=== PATIENT | female | born 2005 | race Caucasian/White ===

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

== ENCOUNTER 2024-11-18 15:26 | Emergency (ER) | payer OTHER, SELFPAY ==
[2024-11-18] VITALS (7 sets, daily range): BP systolic 100–122; BP diastolic 56–81; PULSE 112–148; RESP 18–30; TEMP 37.2–37.8; O2SAT 96–100; BMI 18.9
--- NOTE | ~2024-11-18 | CT_ITS ---
CLINICAL HISTORY: tachycardia CT angiography chest with contrast. With MIP MPR Postprocessing. Comparison: None available Findings: No central pulmonary embolism. Small mediastinal and hilar nodes may be reactive. No aortic dissection. Mild residual thymic tissue present. Mild bibasilar atelectasis and motion artifacts. Mild emphysematous changes and scarring. No consolidation, pneumothorax, or pleural effusion. Steatotic change of the imaged liver in the imaged abdomen. No acute osseous abnormality accounting for motion artifacts. IMPRESSION: 1. No central pulmonary embolism. 2. No consolidation. This document has been electronically signed by: Maurilio Vasques MD on 11/18/2024 19:18:14
--- NOTE | 2024-11-18 15:30 | ED_ITS ---
HPI - General Adult General Chief complaint: Nausea/Vomiting/Diarrhea Stated complaint: fainting / heart rate 190 / vomitting Time Seen by Provider: 11/18/24 17:30 Source: patient Mode of arrival: ambulatory Limitations: no limitations History of Present Illness HPI narrative: 19 year old female presents to the ER with palpitations, nausea and vomiting. she states that her heart rate has been elevated she has had a complete workup for it sitting that she has done testing for multiple syncopal episodes as well as a table test. She states that was recently. Per mom she has always had a heart rate of 130's on her apple watch which she has for years. She continued to have issues with the heart rate and was sent to do the tilt table test by her PCP and was supposed to per mom get a implanted monitor. She arrives tachycardic between 130-150 but was 106 initially. She states she is mainly here for nausea and vomiting. Related Data Previous Rx's ?Medication ?Instructions ?Recorded ondansetron 4 mg disintegrating 4 mg PO Q6-8H PRN nausea and 03/23/23 tablet vomiting #10 tabs oxycodone-acetaminophen 5 mg-325 1 tab PO Q6H PRN pain #20 tabs 03/23/23 mg tablet (Percocet) tamsulosin 0.4 mg capsule (Flomax) 0.4 mg PO BEDTIME #10 caps 03/23/23 prednisone 20 mg tablet 20 mg PO BID #10 tabs 03/26/23 cefuroxime axetil 250 mg tablet 250 mg PO BID 7 days #14 tabs 09/29/23 levofloxacin 500 mg tablet 500 mg PO DAILY #9 tabs 09/29/23 ondansetron HCl 4 mg tablet 4 mg PO Q6H PRN nausea and 09/29/23 vomiting #10 tabs oxycodone 5 mg tablet 5 mg PO BID PRN pain #4 tabs 09/29/23 ondansetron 4 mg disintegrating 4 mg PO Q6H #14 tabs 11/18/24 tablet propranolol 20 mg tablet 20 mg PO BID #90 tabs 11/18/24 Allergies Allergy/AdvReac Type Severity Reaction Status Date / Time Seasonal Allergies Allergy Itchy Eyes Verified 11/18/24 15:35 ketorolac AdvReac Histamine Verified 11/18/24 15:35 reaction morphine AdvReac Histamine Verified 11/18/24 15:35 Reaction Review of Systems 2 Review of Systems: Review of systems: General: Patient denies any fever chills recent illness or falls Musculoskeletal: Denies back pain or body aches or other injuries HEENT: denies headache, runny nose, ear pain Respiratory: denies shortness of breath, cough Cardiovascular: palpitations no chest pain : denies dysuria, frequency Abdomen: diarrhea nausea vomiting denies abdominal pain Extremities: no swelling, no pain Skin: no diaphoresis Yes all other systems are reviewed and are negative PMFSH Past Medical History Medical History (Updated 11/18/24 @ 20:09 by Addi Ariza DO) Calculus of kidney Social History Social History Alcohol intake: never Advance Directives: No Advance Directives Information Provided: No Physical Exam ED Vital Signs: Vital Signs - 24 hr 11/18/24 15:30 11/18/24 18:07 11/18/24 18:09 Temperature 98.9 F 99.6 F Pulse Rate 148 H 112 H 122 H Respiratory Rate 18 30 H 30 H Blood Pressure 100/69 111/57 L 122/81 Pulse Oximetry 98 98 96 Oxygen Delivery Method Room Air Room Air Room Air 11/18/24 19:23 11/18/24 19:23 11/18/24 19:23 Temperature Pulse Rate 119 H 116 H 124 H Respiratory Rate Blood Pressure 111/57 L 109/66 114/69 Pulse Oximetry Oxygen Delivery Method 11/18/24 19:24 Temperature 100.1 F Pulse Rate 116 H Respiratory Rate 22 H Blood Pressure 109/66 Pulse Oximetry 100 Oxygen Delivery Method Room Air BMI result Body Mass Index 18.9 Neurological exam: CN II- XII tested. Patient is alert and oriented to person place and time. Patient has no dysphagia or dysarthia, denies good vision in all four vision cristina no nystagmus on exam, good strength to upper and lower extremities with normal reflexes to brachioradialis, wrist, patella and achilles. Negative romberg, good finger to nose and heel to hernandez. General: Well-appearing well-nourished in no signs of distress HEENT: Normocephalic atraumatic Neck: No signs of JVD, no masses no tenderness or lymphadenopathy Cardiovascular: Regular rate and rhythm Respiratory: Clear to auscultation bilaterally Abdomen: Soft nontender no masses Extremities: Normal pedal pulses no signs of edema Skin: Dry warm no rashes Back: No tenderness full ROM Course Course Course Narrative: RME performed by Enid Lane PA-C. Patient is a 19 year old assigned female at presenting to the emergency department with nausea, vomiting, near syncope, and rapid heart rate. Detailed physical exam and review of systems are deferred to the records management assistant. EKG, labs, imaging and swabs ordered. Patient placed back in the waiting room pending room availability and results. Reevaluation(s) Reevaluation #1: CT and labs including TSH are all normal patient is persistently tachycardic patient is very shaky but has no signs of infection with the negative CT scan and labs. I will consult Cardiology at this time Time: 19:45 Reevaluation #2: I spoke to cardiology who wanted propranolol 20 mg started. I will give a dose here to see if that helps with HR. since the patient has this senior care I do not think she has we will discharge her home. As the patient already has an outpatient kettle loader and hopeful set up for the loop monitor which the mother wants our kettle loader did not feel a strong that it need to be advocated for early he does not see reason for the patient to be admitted I do agree since this has been going for so long the patient is safe to go home heart rate at the time of discharge was 110 she looks well her shakiness has improved her nausea has nearly completely resolved she has had no vomiting here I will send home with Zofran and propranolol Time: 20:06 Medications Administered Discontinued Medications Generic Name Dose Route Start Last Admin Trade Name Divya PRN Reason Stop Dose Admin Sodium Chloride 1,000 mls @ 999 mls/hr 11/18/24 17:45 11/18/24 18:49 Ns IV 11/18/24 18:45 Infused .Q1H1M LEV Infusion Sodium Chloride 1,000 mls @ 999 mls/hr 11/18/24 18:00 11/18/24 19:54 Ns IV 11/18/24 19:00 Infused .Q1H1M LEV Infusion Acetaminophen 1,000 mg in 100 mls @ 400 mls/hr 11/18/24 18:15 11/18/24 19:19 Ofirmev IV 11/18/24 18:29 Infused ONCE ONE Infusion Ibuprofen 400 mg 11/18/24 19:20 11/18/24 20:01 Ibuprofen 400 Mg Tablet PO 11/18/24 19:21 400 mg ONCE ONE Administration Iohexol 65 ml 11/18/24 18:41 11/18/24 18:41 Iohexol 350 Mg/Ml 100 Ml Infus..Btl IV 11/18/24 18:42 65 ml ONCE ONE Administration Metoprolol Tartrate 5 mg 11/18/24 17:52 11/18/24 18:01 Metoprolol Tartrate 5 Mg/5 Ml Vial IVPUSH 11/18/24 17:53 Not Given ONCE ONE Protocol Ondansetron HCl 4 mg 11/18/24 17:45 11/18/24 18:03 Ondansetron Hcl 4 Mg/2 Ml Vial IVPUSH 11/18/24 17:46 4 mg ONCE ONE Administration Medical Decision Making Medical Decision Making MDM Narrative: the story is very odd that she has not been treated for heart rate in the 130s for years and that the patient was sent to hospital but was sent for outpatient monitoring that has not happened I do feel that she is most likely here just for the nausea and vomiting today and I will treat the patient Zofran fluids I will give the patient for a CTA chest the with a heartbeat so fast I do not feel comfortable discharging home I will touch base with Cardiology in addition to the workup that was done triage add on a TSH level I will give the patient fluids and metoprolol. Differential Diagnosis Differential Diagnoses: The differential diagnosis associated with the presentation includes Dehydration electrolyte abnormality palpitations medication effect weakness tachycardia PE Lab Data 11/18/24 15:48 11/18/24 15:48 Labs: Lab Results 11/18/24 Range/Units 15:48 WBC 12.4 H (4.8-10.8) X10*3/uL RBC 5.20 (4.20-5.50) X10*6/uL Hgb 15.7 (12.0-16.0) g/dl Hct 43.8 (37.0-47.0) % MCV 84.2 (80.0-98.0) fL MCH 30.2 (27.0-33.0) pg MCHC 35.8 H (31.0-35.0) g/dl RDW 12.1 (11.0-16.0) % Plt Count 199 (160-400) X10*3/uL MPV 8.8 L (9.4-12.3) fL Immature Gran % (Auto) 0.4 (0.0-0.4) % Neut % (Auto) 93.3 H (45-73) % Lymph % (Auto) 2.0 L (20-40) % Costilla % (Auto) 4.0 (2-11) % Eos % (Auto) 0.2 (0-4) % Baso % (Auto) 0.1 (0-2) % Lymph # (Auto) 0.3 L (1.2-4.9) X10*3/uL [place] # (Auto) 0.5 (0.1-1.2) X10*3/uL Eos # (Auto) 0.0 (0.0-0.4) X10*3/uL Baso # (Auto) 0.0 (0.0-0.2) X10*3/uL Abs Immat Gran (auto) 0.05 H (0.00-0.03) X10*3/uL Absolute Neuts (auto) 11.6 H (2.0-8.3) x10*3/uL Absolute Nucleated RBC 0.000 (0.0-0.012) X10*3/uL Nucleated RBC % (auto) 0.0 (0.0-0.2) /100WBC Sodium 140 (135-145) mmol/L Potassium 4.0 (3.3-5.1) mmol/L Chloride 106 (96-108) mmol/L Carbon Dioxide 20 L (22-29) mmol/L Anion Gap 18 (12-20) BUN 18 H (9-16) mg/dL Creatinine 0.96 (0.5-1.4) mg/dL Estim Creat Clear Calc 75.8 Estimated GFR > 60 Random Glucose 117 H (60-115) mg/dL Calcium 9.6 (8.4-10.2) mg/dL Magnesium 1.9 (1.6-2.6) mg/dL Total Bilirubin 1.1 H (0.0-1.0) mg/dL AST 24 (5-31) U/L ALT 27 (0-31) U/L Alkaline Phosphatase 62 (39-117) U/L Troponin I High Sens < 2.7 (<3.5-17.0) ng/L Total Protein 8.4 H (6.5-8.0) g/dL Albumin 4.9 (3.5-5.0) g/dL TSH 0.55 (0.32-4.0) uIU/mL Beta HCG, Quant < 2 mIU/mL Influenza Type A (PCR) NEGATIVE (Negative) Influenza Type B (PCR) NEGATIVE (Negative) RSV RNA Qual (PCR) NEGATIVE (Negative) SARS-CoV-2 RNA (RT-PCR) NEGATIVE (Negative) Discharge Plan Discharge Clinical Impression: Tachycardia, Vomiting, Acute dehydration Patient Disposition: Home, Self-Care Additional Instructions: You were seen today in the emergency department for nausea vomiting and persistent elevated heart rate which is called tachycardia. You had CT and labs done which were all unremarkable including thyroid levels we did speak with cardiology who recommend you start on a medication for the heart rate. Please call follow up with your doctor if you have any other concerns please return to the ER. Prescriptions: New propranolol 20 mg tablet 20 mg PO BID Qty: 90 0RF ondansetron 4 mg tablet,disintegrating 4 mg PO Q6H Qty: 14 0RF No Action oxycodone-acetaminophen [Percocet] 5-325 mg tablet 1 tab PO Q6H PRN (Reason: pain) Qty: 20 0RF Rx Instructions: Partial Fill upon patient request. tamsulosin [Flomax] 0.4 mg capsule 0.4 mg PO BEDTIME Qty: 10 0RF ondansetron 4 mg tablet,disintegrating 4 mg PO Q6-8H PRN (Reason: nausea and vomiting) Qty: 10 0RF prednisone 20 mg tablet 20 mg PO BID Qty: 10 0RF levofloxacin 500 mg tablet 500 mg PO DAILY Qty: 9 0RF oxycodone 5 mg tablet 5 mg PO BID PRN (Reason: pain) Qty: 4 0RF Rx Instructions: Partial Fill upon patient request. ondansetron HCl 4 mg tablet 4 mg PO Q6H PRN (Reason: nausea and vomiting) Qty: 10 0RF cefuroxime axetil 250 mg tablet 250 mg PO BID 7 Days Qty: 14 0RF Print Language: Danish
--- NOTE | 2024-11-18 15:31 | ECG_ITS ---
Test Reason : cp Blood Pressure : */* mmHG Vent. Rate : 138 BPM Atrial Rate : 138 BPM P-R Int : 116 ms QRS Dur : 70 ms QT Int : 284 ms P-R-T Axes : 71 76 31 degrees QTcB Int : 430 ms Sinus tachycardia Otherwise normal ECG When compared with ECG of 27-Mar-2023 12:45, No significant change was found Referred By: Enid Lane Electronically Signed By: MY REBOLLAR MD
[2024-11-18 16:01] LABS: MANUAL DIFF FLAG NO
[2024-11-18 16:06] LABS: Basophils Percent Auto 0.1 % (0-2); Eosinophils Percent Auto 0.2 % (0-4); Hematocrit 43.8 % (37.0-47.0); Hemoglobin 15.7 g/dl (12.0-16.0); Imm Gran Abs Auto 0.05 X10*3/uL (0.00-0.03); Imm Gran Pct Auto 0.4 % (0.0-0.4); Lymphocytes Absolute Auto 0.3 X10*3/uL (1.2-4.9); Mean Corpuscular HGB Conc 35.8 g/dl (31.0-35.0); Mean Corpuscular Hemoglobin 30.2 pg (27.0-33.0); Mean Corpuscular Volume 84.2 fL (80.0-98.0); Mean Platelet Volume 8.8 fL (9.4-12.3); Monocytes Absolute Auto 0.5 X10*3/uL (0.1-1.2); Neutrophils Absolute Auto 11.6 x10*3/uL (2.0-8.3); Neutrophils Percent Auto 93.3 % (45-73); Platelet Count 199 X10*3/uL (160-400); Red Cell Distribution Width 12.1 % (11.0-16.0); SCAN SMEAR FLAG 1; White Blood Count 12.4 X10*3/uL (4.8-10.8)
[2024-11-18 16:27] LABS: Alanine Aminotransferase 27 U/L (0-31); Albumin Level 4.9 g/dL (3.5-5.0); Alkaline Phosphatase 62 U/L (39-117); Anion Gap 18 (12-20); Aspartate Amino Transferase 24 U/L (5-31); Bilirubin Total 1.1 mg/dL (0.0-1.0); Blood Urea Nitrogen 18 mg/dL (9-16); Calcium 9.6 mg/dL (8.4-10.2); Carbon Dioxide 20 mmol/L (22-29); Chloride 106 mmol/L (96-108); Creatinine Clr Calc Pharmacy 75.8; Estimated Glomerular Filt Rate > 60; Glucose Random 117 mg/dL (60-115); Magnesium 1.9 mg/dL (1.6-2.6); Sodium 140 mmol/L (135-145); Total Protein 8.4 g/dL (6.5-8.0)
[2024-11-18 16:28] LABS: Troponin-I High Sensitivity < 2.7 ng/L (<3.5-17.0)
[2024-11-18 16:29] LABS: HCG Quantitative < 2 mIU/mL
[2024-11-18 16:42] LABS: Influenza A PCR NEGATIVE (Negative); Influenza B PCR NEGATIVE (Negative); Resp Syncy Virus RNA Qual PCR NEGATIVE (Negative); SARS COV2 PCR INHOUSE NEGATIVE (Negative)
[2024-11-18] MEDS: 0.9 % Sodium Chloride 1,000 ML 999 ML IV ×2 (17:54→18:53)
[2024-11-18] MEDS: ondansetron HCL 4 MG/2 ML VIAL IVPUSH (18:03)
[2024-11-18 18:27] LABS: TSH reflex Free T4 0.55 uIU/mL (0.32-4.0)
[2024-11-18] MEDS: iohexoL 350 MG/ML 100 ML INFUS..BTL 65 ML IV (18:41)
[2024-11-18] MEDS: Acetaminophen 1,000 MG/100 ML PIGGYBACK 400 MG IV (18:55)
--- OUTSIDE RECORDS SUMMARY | 2024-11-18 19:11 | XMS_ITS | Encounter Summary ---
Author Organization [facility] Address [address] [place] [address] Phone Care Team Providers Care Server Support Technician Name Role Phone Poornima Goodman MD Primary Care Provider [phone] Reason for Visit * Reason Onset Date Comments Med Refill 12/09/2022 Encounter Details Date Type Department Care Team (Late st Contact Info) Description 12/09/2022 Refill [facility] [place] [address] [place] [address] Poornima Goodman MD [address] [facility] [address] [place] [address] Anxiety Social History Tobacco Use Types Packs/Day Years Used Date Smoking Tobacco: Never Smokeless Tobacco: Never Alcohol Use Standard Drinks/Week Comments No 0 (1 standard drink = 0.6 oz pur e alcohol) Hunger/Food Answer Date Recorded In the last 12 months, did y ou or your family ever eat less than you felt you should because there wasn't enough money for food? No 05/18/2022 Stable Housing Answer Date Recorded Are you worried that in the next 2 months you may not have stable housing? No 05/18/2022 Transportation Concerns Answer Date Rec orded In the last 12 months, have you or your family ever had to go without healthcare because you didn't have a way to get there? No 05/18/2022 Hazards in Home Answer Date Recorded Think about the place you li ve. Do you have problems with any of the following? Pests (mice or roaches), mold, no/not working smoke detectors, water leaks, no window guards. No 2021 Financing Utilities Answer Date Recorde d In the last 12 months, has t he electric, gas, oil, or water company threatened to shut off your services in your home? No 05/18/2022 Safety at Home Answer Date Recorded Are you or your family worried about feeling saf e in your home? No 05/18/2022 Outside Support Answer Date Recorded Do you feel that you need mo re support from other people or programs to help you care for yourself or your family? No 05/18/2022 Understanding Health Concerns Answer Da te Recorded Do you need help understandi ng your or your child's healthcare needs (diagnosis, medications, plan, etc.)? No 05/18/2022 Financing Health Concerns Answer Date R ecorded In the last 12 months, was t here a time when your child needed to see a doctor or get medications or supplies but could not because of cost? No 05/18/2022 Missing School or Work Answer Date Salbador rded Did you or your child miss s chool or work because of a health problem that could have been avoided? No 05/18/2022 Comments Unknown Sex and Gender Information Value Date Recorded Sex Assigned at Not on file Legal Sex Female 5:39 PM EST Gender Identity Female 07/21/2020 1:49 PM EST Sexual Orientation Not on file documented as of this encounter Plan of Treatment Upcoming Encounters Date Type Department Care Team (Late st Contact Info) Description 01/22/2025 8:20 AM EDT Office Visit [facility] [address] [place] [address] Poornima Goodman MD [address] [address] documented as of this encounter Visit Diagnoses Diagnosis Anxiety Anxiety state, unspecified documented in this encounter Care Teams Server Support Technician Relationship Specialty Start Date End Date Poornima Goodman MD [address] [place] [id number] PCP - General Pediatrics 11/18/22 documented as of this encounter
--- OUTSIDE RECORDS SUMMARY | 2024-11-18 19:11 | XMS_ITS | Encounter Summary ---
Author Organization [facility] Address [address] [place] [address] Phone Care Team Providers Care Sheet Hanger Name Role Phone Poornima Goodman MD Primary Care Provider [phone] Reason for Visit * Reason Comments Med Management Encounter Details Date Type Department Care Team (Late st Contact Info) Description 10/24/2024 8:40 AM EST Office Visit [facility] [place] [address] [place] [address] Poornima Goodman MD 193 [facility] [address] [place] [address] Anxiety (Primary Dx); Cardiac syncope Social History Tobacco Use Types Packs/Day Years [...] could have been avoided? No 05/18/2022 Comments No Sex and Gender Information Value Date Recorded Sex Assigned at Not on file Legal Sex Female 5:39 PM EST Gender Identity Female 07/21/2020 1:49 PM EST Sexual Orientation Not on file documented as of this encounter Last Filed Vital Signs Vital Sign Reading Time Taken Comments Blood Pressure 116/73 10/24/2024 8:44 AM EST Pulse 108 10/24/2024 8:44 AM EST Temperature - - Respiratory Rate - - Oxygen Saturation - - Inhaled Oxygen Concentration - - Weight 51.9 kg (114 lb 6.4 oz) 10/24/2024 8:44 A M EST Height 168.3 cm (5' 6.25 ) 10/24/2024 8:44 AM ES T Body Mass Index 18.33 10/24/2024 8:44 AM EST documented in this encounter Patient Instructions * Patient Instructions* Khris Valera - 10/24/2024 8:40 AM EST Mood Continue sertraline [Zoloft], amitriptyline at current dose(s) Portal or phone follow-up: as needed Medication recheck visit in 3 months Call sooner with any concerning symptoms, change in behavior or academic performance, or any other questions. Schedule well visit at earliest convenience. documented in this encounter Progress Notes * Poornima Goodman MD - 10/24/2024 8:40 AM EST Chief Complaint Med Management Accompanied by No one. History of Present Illness Mood: Current medication(s): Amitriptyline 25 mg, Sertraline 100 mg Symptoms well controlled: Yes Refill needed: no Time on current medication: >1 year for both Current symptoms: nervousness, anxiousness, worrying, trouble relaxing, sleep dysfunction, fatigue Denies: suicidal thoughts Side effects: none Context: Higher RICO 7 and PHQ 9 than usual today. Having some increased anxiety as this has been a hard week with health issues. New medication midodrine was prescribed earlier this week. She passed out and her heart stopped. Diagnosed with cardioinhibitory syncope a [facility]. Follows with [facility]. She has not started taking the new medication yet, needs to pick it up from the pharmacy. Needs to get compression socks, loop recorder implant, increase electrolytes and salt. Potentially will get a pacemaker if these don't help. Does not have a therapist and does not desire one. Doesn't feel she needs a dose increase. Didn't take medication for three days in a row and it was horrible. Screenings General Anxiety Disorder-7 (GAD7) RICO 7 Score: 10 Patient Health Questionnaire-9 (PHQ-9) PHQ-9 Total Score: 6 (See screening activity for details) Reviewed this visit: Medications Vitals BP 116/73 (BP Location: Left arm) Pulse (!) 108 Ht 5' 6.25 (168.3 cm) Wt 114 lb 6.4 oz (51.9kg) BMI 18.33 kg/m?? Physical Exam GEN: Well appearing, in no acute distress. HEAD: Normocephalic, atraumatic. EYES: Conjunctiva clear, no discharge, eyelids wnl. COR: Mild tachycardia, HR ~110 Regular rhythm, nml S1 and S2, no murmurs. PULM: Clear to auscultation bilaterally. Normal respiratory effort. SKIN: No rash. Assessment and Plan Paula was seen today for med management. Anxiety (Primary) Assessment & Plan: GAD7 = 10, PHQ9 = 6. Higher than usual given recent news about her health (needing loop recorder and possible pacemaker for her heart). Not in therapy and does not feel she needs one. Has continued to take sertraline and amitriptyline with good effect. Does not want to make any changes to this medication. Continue with medication check in 3 months with [facility]. Cardiac syncope Assessment & Plan: Follows with [facility] Cardiology. Last seen 10/22/2024. Had positive tilt-table test. Diagnosed with cardiac-inhibitory syncope. Prescribed midodrine 5mg TID. Has not yet started this. Also recommend compression stockings, loop recorder implant and electrolytes. If little improvement, will need pacemaker.Will see Cardiology next week for further details. Mood Continue sertraline [Zoloft], amitriptyline at current dose(s) Portal or phone follow-up: as needed Medication recheck visit in 3 months Call sooner with any concerning symptoms, change in behavior or academic performance, or any other questions. Schedule well visit at earliest convenience. Follow-up and Dispositions Return for Well Visit. Visit scribed by Khris Valera, 9:02 AM 10/24/2024. All medical record entries made by the Scribe were at the personal direction of Poornima Goodman MD, who has reviewed the chart and agrees that the record accurately reflects their personal performance of the history, physical exam, assessment and plan. documented in this encounter Miscellaneous Notes * Assessment & Plan Note - Poornima Goodman MD - 10/24/2024 11:56 AM ESTAssociated Problem(s): Anxiety GAD7 = 10, PHQ9 = 6. Higher than usual given recent news about her health (needing loop recorder and possible pacemaker for her heart). Not in therapy and does not feel she needs one. Has continued to take sertraline and amitriptyline with good effect. Does not want to make any changes to this medication. Continue with medication check in 3 months with [facility]. * Assessment & Plan Note - Poornima Goodman MD - 10/24/2024 9:06 AM ESTAssociated Problem(s): Cardiac syncope Follows with [facility] Cardiology. Last seen 10/22/2024. Had positive tilt-table test. Diagnosed with cardiac-inhibitory syncope. Prescribed midodrine 5mg TID. Has not yet started this. Also recommend compression stockings, loop recorder implant and electrolytes. If little improvement, will need pacemaker.Will see Cardiology next week for further details. documented in this encounter Plan of Treatment Upcoming Encounters Date Type Department Care Team (Late st Contact Info) Description 01/22/2025 8:20 AM EDT Office Visit [facility] - [address] [address] Poornima Goodman MD [address] [place] [phone] documented as of this encounter Visit Diagnoses Diagnosis Anxiety- Primary Anxiety state, unspecified Cardiac syncope Syncope and collapse documented in this encounter Care Teams Sheet Hanger Relationship Specialty Start Date End Date Poornima Goodman MD [address] [place] [id number] PCP - General Pediatrics 11/18/22 documented as of this encounter
--- OUTSIDE RECORDS SUMMARY | 2024-11-18 19:12 | XMS_ITS | Encounter Summary ---
Author Organization [facility] Address [address] [place] [address] Phone Care Team Providers Care Pool Technician Name Role Phone Poornima Goodman MD Primary Care Provider [phone] Reason for Visit * Reason Comments ED Admission Encounter Details Date Type Department Care Team (Late st Contact Info) Description 11/18/2024 3:26 PM EST - Present Hospital Encounter [facility] - Patient Ping Social History Tobacco Use Types Packs/Day Years [...] Description 01/22/2025 8:20 AM EDT Office Visit [facility] [address] [place] [address] Poornima Goodman MD [address] [place] [phone] documented as of this encounter Visit Diagnoses Not on filedocumented in this encounter Care Teams Pool Technician Relationship Specialty Start Date End Date Poornima Goodman MD [address] [place] [id number] PCP - General Pediatrics 11/18/22 documented as of this encounter
--- OUTSIDE RECORDS SUMMARY | 2024-11-18 19:12 | XMS_ITS | Clinical Summary ---
Author Organization [facility] Address [address] [place] [address] Phone Care Team Providers Care Client Solutions Director Name Role Phone Poornima Goodman MD Primary Care Provider [phone] Allergies Active Allergy Reactions Criticality Noted Date Comments Environmental seasonal Medications medroxyPROGESTERo ne 150 MG/ML injection INJECT 1 ML INTRAMUSCULAR EVERY 3 MONTHS 2 04/21/20 20 Active Cholecalciferol (D3-1000) 25 MCG (1000 UT) capsuleIndication s:Encounter for routine child health examination with abnormal findings TAKE 1 CAPSULE BY MOUTH EVERY DAY 30 capsule 2 02/08/20 23 Active ondansetron ODT 4 MG disintegrating tablet Take 4 mg by mouth every 8 (eight) hours as needed. 03/23/20 23 Active oxyCODONE-acetami nophen 5-325 MG per tablet Take 1 tablet by mouth every 4 (four) hours as needed. 03/23/20 23 Active amitriptyline 25 MG tabletIndications :Anxiety Take 1 tablet (25 mg total) by mouth nightly. 90 tablet 09/20/19 25 Active sertraline 100 MG tabletIndications :Anxiety TAKE 1 TABLET BY MOUTH EVERY DAY 90 tablet 10/15/19 25 Active midodrine 5 MG tablet Take 5 mg by mouth 3 times daily. 10/22/19 25 Active cefuroxime 250 MG tablet 09/29/19 24 025 Discontin ued(Thera py completed ) Active Problems Problem Noted Date Diagnosed Date Stress due to illness of family member Overview (09/30/2023): 09/30/23: Mom (Alex) to have cardiac surgery: mitral valve replacement and tricuspid valve repair. Mom reports Paula has increased stress, anger at mom. Referred to [facility]. Acute pyelonephritis 09/30/2023 Assessment & Plan (10/17/2023 5:05 PM EST): UC from 09/29 [facility] was <10k and f/u next day at [facility] no growth. Pain and hematuria likely related to her kidney stones. Assessment & Plan (09/30/2023 11:31 AM EST): Seen in [facility] ED. Urine dipstick neg for leuks/nitrites. Still hematuria, symptoms improving Tachycardia 03/30/2023 Assessment & Plan (03/30/2023 1:37 PM EDT): Seen at [facility] ED on 03/27/2023 for arrythmia and tachcardia. Normal EKG (sinus tach) and blood work (cbc, cmp, tsh and negative ddimer, toponin, hcg). No recurrence of symptoms. Noted to have tachycardia today with HR 112 with normal exam today. Will refer to Cardiology for possible Holter monitoring. Right nephrolithiasis 01/14/2022 Overview (01/14/2022): Seen in ED 12/2021, 2mm stone with right sided hydroneprhosis mild, will f/u with urology Assessment & Plan (09/30/2023 11:32 AM EST): Seen at [facility] - pyelo and CT showed kidney stones but unclear if they are symptomatic or just the UTI. Improving on abx.Consider urology or renal referral. Assessment & Plan (05/18/2022 11:28 AM EDT): None further Cardiac syncope 12/04/2020 Overview (10/24/2024): 12/04/20-fainted at blood draw today Follows with [facility] Cardiology. Last seen 10/22/2024. Had positive tilt-table test. Diagnosed with cardiac-inhibitory syncope. Prescribed midodrine 5mg TID. Has not yet started this. Also recommend compression stockings, loop recorder implant and electrolytes. If little improvement, will need pacemaker. Will see Cardiology next week for further details. Assessment & Plan (10/24/2024 11:53 AM EST): Follows with [facility] Cardiology. Last seen 10/22/2024. Had positive tilt-table test. Diagnosed with cardiac-inhibitory syncope. Prescribed midodrine 5mg TID. Has not yet started this. Also recommend compression stockings, loop recorder implant and electrolytes. If little improvement, will need pacemaker. Will see Cardiology next week for further details. Assessment & Plan (06/17/2021 8:41 AM EDT): Has it to intense pain and blood draws. Okay with shots. Anxiety 11/21/2019 Assessment & Plan (10/24/2024 11:56 AM EST): GAD7 = 10, PHQ9 = 6. Higher than usual given recent news about her health (needing loop recorder and possible pacemaker for her heart). Not in therapy and does not feel she needs one. Has continued to take sertraline and amitriptyline with good effect. Does not want to make any changes to this medication. Continue with medication check in 3 months with [facility]. Assessment & Plan (11/21/2019 10:12 PM EST): Likely the tip of the iceberg - has trouble falling asleep due to worrying. Gets anxious about social media but does not want to limit. Feels competent academically but gets panicky with testing. Referred to [facility] and advised to discuss more with Dr. Aquino. Chronic bilateral low back pain without sciatica 08/03/2019 Overview (07/13/2020): Lumbar spine xray normal Completed PT at [facility] 06/2020 Assessment & Plan (05/18/2022 11:28 AM EDT): No back pain recently Assessment & Plan (06/17/2021 8:43 AM EDT): Still persists, intermittently. Hasn't had it in awhile. Unsure if PT helped. Assessment & Plan (07/23/2020 10:37 AM EST): Persists, improved frequency after PT x10 weeks but still occurring twice a month Assessment & Plan (11/21/2019 10:12 PM EST): Improved. Assessment & Plan (08/03/2019 3:36 PM EST): Intermittent spasms for months. Lower lumbar. Will start PT Discussed preventive and exercises. Can continue with flexeril. Family circumstance 12/13/2018 Overview (12/13/2018): Adopted. Sister struggling with depression, eating issues, recently hospitalized. Parents . Many emotional issues in family. ADHD (attention deficit hype ractivity disorder), combined type 09/02/2015 Overview (09/30/2023): Combined type at home, inattentive only when at school. Assessment & Plan (06/17/2021 8:39 AM EDT): Not currently on meds. Focusing okay. Concerta caused appetite loss and she did not like the side effects. Assessment & Plan (11/21/2019 10:13 PM EST): Stable on concerta 27 mg. Allergic rhinitis 09/02/2015 Overview (12/12/2017): saw cut off machine operator Dr Badillo 01/24, skin tested positive to dust, trees, grass, dogs. Typically sx flare in spring, summer. Resolved Problems Problem Noted Date Diagnosed Date Resolved Date Mononucleosis 12/07/2020 06/17/2021 Weight loss 08/31/2020 06/17/2021 Assessment & Plan (09/30/2020 6:55 PM EST): Improved. Eating more regularly. Recommended adding in more snacks and continuing a shake daily. Recheck in 2-3 weeks. Assessment & Plan (09/17/2020 11:22 AM EST): Due to inadequate intake, likely worsened by depression (followed by psychiatry). Labs normal. Continues to have orthostatic changes with HR, no bradycardia or amenorrhea. Chest pain made worse by breathing 07/21/2020 06/17/2021 Assessment & Plan (07/23/2020 10:38 AM EST): Likely GERD, advised trial of antacids if future episodes. Discussed reassuring exam and history. No further recurrences since primary episode 2 days ago Assessment & Plan (07/21/2020 3:57 PM EST): acute transient chest pain. Brief episode of severe sharp pain x 10 minutes, worse w/breathing or movement: in lower ribs, lower sternum, epigastric. Likely reflux, but unable to do cardiac exam on VV; has office visit in 2 days. Pain in both feet 03/25/2020 06/17/2021 Overview (03/25/2020): will get labs for causes of burning in feet Sleep disturbance 11/21/2019 06/17/2021 Assessment & Plan (11/21/2019 10:12 PM EST): Trial melatonin 3 > 6 mg Encounters Date Type Department Care Team Description 11/18/2024 3:26 PM EST - Present Hospital Encounter [facility] - Patient Ping 10/24/2024 8:40 AM EST Office Visit [facility] [address] [address] Poornima Goodman MD Anxiety (Primary Dx); Cardiac syncope 10/15/[address] [address] Poornima Goodman MD Anxiety 09/20/2024 Refill [facility] [place] [address] [place] [address] Vika Sinha MD Anxiety 08/29/2024 Refill [facility] [place] [address] [place] [address] Poornima Goodman MD Anxiety from Last 3 Months Immunizations Immunization Administration Dates Next Due DTaP 05/29/2008,11/11/2005 DTaP / Hep B / IPV 2004,2004, 004 H1N1 09/02/2009 HPV Vaccine 9 Valent 12/12/2017,09/05/2016 Hep A, ped/adol 09/16/2020,11/21/2019 Hib (PRP-T) 11/11/2005, 5,2004,07/15 IPV 05/29/2008 Influenza 06/04/2009, 8,06/04/2007,07/17,08/29/2005,07/26/2005 Influenza, injectable, quadr ivalent, preservative free 06/17/2021,07/23/2020,06/04/2019,07/14,08/09/2017,07/20/2016,07/24/2015 Influenza, intranasal, quadrivalent 08/18/2014,1 10/09/2012 Influenza, intranasal, trivalent 07/24/2012,06/19,07/12/2010 MMR 03/17/2009,11/11/2005 Meningococcal Conj (Menactra) MCV4P 09/16/2020,1 11/04/2014 Pneumococcal Conjugate 11/11/2005,2004,2004,07/15 Tdap 09/03/2015 Varicella 05/29/2008,2005 Family History * Patient is adopted Medical History Relation Name Comments Substance abuse Mother Relation Name Status Comments Mother Mother: cocaine addiction Other cocaine addicti on Social History Tobacco Use Types Packs/Day Years [...] PM EST Sexual Orientation Not on file Last Filed Vital Signs Vital Sign Reading Time Taken Comments Blood Pressure 116/73 10/24/2024 8:44 AM EST Pulse 108 10/24/2024 8:44 AM EST Temperature 37.4 ??C (99.3 ??F) 08/07/2024 1:17 PM ES T Respiratory Rate 20 08/07/2024 1:17 PM EST Oxygen Saturation 100% 08/07/2024 1:17 PM EST Inhaled Oxygen Concentration - - Weight 51.9 kg (114 lb 6.4 oz) 10/24/2024 8:44 A M EST Height 168.3 cm (5' 6.25 ) 10/24/2024 8:44 AM ES T Body Mass Index 18.33 10/24/2024 8:44 AM EST Plan of Treatment Upcoming Encounters Date Type Department Care Team (Late st Contact Info) Description 01/22/2025 8:20 AM EDT Office Visit [facility] [place] [address] [place] [address] Poornima Goodman MD [address] [facility] [address] [place] [address] Health Maintenance Due Date Last Done Comments HIV Screening 2019 Men B Vaccine (1 of 2 - Standard) 2020 Hepatitis C Screening 2022 COVID-19 Vaccine (3 - 2023-2 5 season) 2024 01/31/2021, 01/10/2021 Chlamydia and Gonorrhea Screening 09/18/2024 022, 11/21/2019 DTaP,Tdap,and Td Vaccines (7 - Td or Tdap) 09/03/2025 09/03/2015, 05/29/2008, 11/11/2005, Additional history exists Hepatitis B Vaccines Completed 2004, 2004, 2004 HIB Vaccines Completed 11/11/2005, 11/2004, 2004, Additional history exists Pneumococcal Vaccine Completed 11/11/2005, 2004, 2004, Additional history exists IPV Vaccines Completed 05/29/2008, 11/2004, 2004, Additional history exists Varicella Vaccines Completed 05/29/2008, 2005 MMR Vaccines Completed 03/17/2009, 11/11/2005 HPV Vaccines Completed 12/12/2017, 09/05/2016 Hepatitis A Vaccines Completed 09/16/2020, 11/21/19 20 Meningococcal Vaccine Completed 09/16/2020, 015 Influenza Vaccines Completed 07/25/2024, 0 06/17/2021, 07/23/2020, Additional history exists Procedures * The patient is currently admitted. The information in this section might not be complete until the patient is discharged.Due to [place] [employer] law, this organization might not be sharing sensitive test results. Procedure Name Priority Date/Time Associated Diagnosis Comments CHLAMYDIA AND GONORRHEA, AMPLIFIED Routine 05/18/2022 11:46 AM EDT Routine screening for STI (sexually transmitted infection) from Last 3 Months or Most Recently Relevant to Health Maintenance Results * Due to [place] [employer] law, this organization might not be sharing sensitive test results. * Chlamydia and Gonorrhoea, Amplified (05/18/2022 11:46 AM EDT) Chlamydia trachomatis RNA, TMA Not Detected Not Detected 05/19/2022 9:38 AM EDT [facility] Neisseria gonorrhoeae, BARBARA Not Detected Not Detected 05/19/2022 9:38 AM EDT [facility] Specimen Type U 05/19/2022 9:38 AM EDT [facility] Urine (Urine) 05/18/2022 11: 46 AM EDT 05/18/2022 12:24 PM EDT Jacinta López MD LAB MICROBIOLOGY - GENERAL ORDER ROBERT Final Result Performing Organization Address City/State/[facility] Co de Phone Number [facility] from Last 3 Months or Most Recently Relevant to Health Maintenance Insurance [facility] [employer] [employer] Care Teams Client Solutions Director Relationship Specialty Start Date End Date Poornima Goodman MD [address] [place] [id number] PCP - General Pediatrics 11/18/22
--- OUTSIDE RECORDS SUMMARY | 2024-11-18 19:12 | XMS_ITS | Encounter Summary ---
Author Organization [facility] Address [address] [place] [address] Phone Care Team Providers Care Process Area Supervisor Name Role Phone Poornima Goodman MD Primary Care Provider [phone] Encounter Details Date Type Department Care Team (Late st Contact Info) Description 04/26/2017 Conversion Encounter [facility] - [address], [address] [place] [address] Nai Christopher NP [address] [place] [id number] Social History Tobacco Use Types Packs/Day Years Used Date Smoking Tobacco: Never Assessed Comments Unknown Sex and Gender Information Value Date Recorded Sex Assigned at Not on file Legal Sex Female 5:39 PM EST Gender Identity Female 07/21/2020 1:49 PM EST Sexual Orientation Not on file documented as of this encounter Plan of Treatment Upcoming Encounters Date Type Department Care Team (Late st Contact Info) Description 01/22/2025 8:20 AM EDT Office Visit [facility] [place] [address] [place] [address] Poornima Goodman MD [address] [facility] [address] [place] [address] documented as of this encounter Visit Diagnoses Not on filedocumented in this encounter Care Teams Process Area Supervisor Relationship Specialty Start Date End Date Poornima Goodman MD [address] [place] [address] [address] [place] [address] PCP - General Pediatrics 11/18/22 documented as of this encounter
--- NOTE | 2024-11-18 19:28 | MHC.EDTECH ---
This tech took over care of pt at 1900,rounded and introduced self to pt, orthostatic vitals completed per provider's request, pt ambulated to the bathroom in attempts to give a urine sample, pt has a steady gait
--- NOTE | 2024-11-18 19:37 | MHC.EDTECH ---
Urine sample collected and sent to lab
[2024-11-18 19:45] LABS: Appearance Urine Clear; Color Urine Yellow; Glucose Urine UA Negative (Negative); Leukocyte Esterase Urine Negative (Negative); Nitrite Urine Negative (Negative); Specific Gravity - Urine >= 1.030 (1.005-1.025); Urine Blood Negative (Negative); Urine Ketones Negative (Negative); Urine Protein Negative (Neg-Trace)
[2024-11-18] MEDS: Ibuprofen 400 MG TABLET PO (20:01)
[2024-11-18] MEDS: Propranolol HCL 20 MG TABLET PO (20:33)
== END 2024-11-18 20:42 | disposition home or self-care (01) ==
PROVIDERS: Physician Assistant Medical; Emergency Provider Student in an Organized Health Care Education/Training Program; PCP Pediatrics
DX: E86.0 Dehydration (principal); R00.0 Tachycardia, unspecified; R11.10 Vomiting, unspecified
CPT/HCPCS: 0241U; 71275; 80053; 81003; 83735; 84443; 84484; 84702; 85025; 93005; 96361; 96365; 96375; 99284; J0131; J2405; Q9967

== ENCOUNTER → 2024-11-18 15:31 | Outpatient (BNV) | payer OTHER, SELFPAY | PROVIDERS: Emergency Provider Student in an Organized Health Care Education/Training Program; PCP Pediatrics; Visit Provider Internal Medicine Cardiovascular Disease | DX: R00.0 Tachycardia, unspecified (principal) | CPT/HCPCS: 93010 ==

== ENCOUNTER → 2024-11-18 17:48 | Outpatient (BNV) | payer OTHER, SELFPAY | PROVIDERS: Emergency Provider Student in an Organized Health Care Education/Training Program; PCP Pediatrics; Visit Provider Radiology Neuroradiology | DX: R00.0 Tachycardia, unspecified (principal) | CPT/HCPCS: 71275 ==

== ENCOUNTER → 2025-04-28 15:14 | Outpatient (BNVA) | payer SELFPAY | PROVIDERS: PCP Pediatrics | DX: Z02.89 Encounter for other administrative examinations (principal) ==